=== PATIENT | male | born 2000 | race Caucasian/White ===

== ENCOUNTER 2021-08-22 21:37 | Emergency (ER) | payer OTHER ==
[2021-08-22] MEDS ORDERED: Sodium Chloride 0.9% 1000 ML 1,000 ML IV STA (22:05)
[2021-08-22] MEDS ORDERED: TORAdol 30 mg Injection IV ONE (22:05)
[2021-08-22] MEDS ORDERED: Zofran 4 MG/2 ML VIAL IV ONE (22:05)
[2021-08-22 22:20] LABS: Appearance CLEAR (CLEAR); Bilirubin NEGATIVE (NEGATIVE); Blood NEGATIVE Ery/ul (0-5); Glucose NEGATIVE (NEGATIVE); Ketones NEGATIVE (NEGATIVE); Leukocyte Esterase NEGATIVE (NEGATIVE); Nitrite NEGATIVE (NEGATIVE); Protein,Urine Dip NEGATIVE (Negative); Specific Gravity 1.002 (1.005-1.025); Urobilinogen NEGATIVE mg/dL (0-1)
[2021-08-22] MEDS ORDERED: Zofran 4 MG/2 ML VIAL ONE (22:27)
[2021-08-22] MEDS ORDERED: TORAdol 30 mg Injection ONE (22:27)
[2021-08-22] MEDS ORDERED: Sodium Chloride 0.9% 1000 ML 1,000 ML ONE (22:28)
--- NOTE | 2021-08-22 22:28 | ERPHSYRPT ---
- History of Present Illness Time Seen by Provider: 08/22/21 21:41 Historian: patient Exam Limitations: no limitations Patient Subjective Stated Complaint: pt states "I have been having side pain and urge to pee." Triage Nursing Assessment: pt ambulated into the er; pt is axo x4; c/o rt flank pain; pt denies pain at time of assessment; pt states pain has been intermitten for the past year; pt states urgency with urination; pt denies N/V/D; abd is round, obese, nontender; nontender with palpitation to rt flank; urine clear and yellow; hypertensive Physician History: 21-year-old male presented in the ER with chief complaint of right flank pain off and on for quite some time and lately getting worse with associated increased urinary frequency but no urgency hesitancy or hematuria. Patient reports dull aching sharp pain moderate intensity without any significant aggravating or relieving factors. No fever or chills reported. Timing/Duration: week(s), intermittent, worse Activities at Onset: rest Quality: sharpness, throbbing Abdominal Pain Onset Location: flank Pain Radiation: no radiation Severity of Pain-Max: moderate Severity of Pain-Current: moderate Modifying Factors: Improves With: nothing Associated Symptoms: denies symptoms Previous symptoms: same symptoms as today Allergies/Adverse Reactions: Penicillins Allergy (Verified 08/22/21 21:56) Hx Tetanus, Diphtheria Vaccination/Date Given: Yes (unknown) Hx Influenza Vaccination/Date Given: No Hx Pneumococcal Vaccination/Date Given: No Immunizations Up to Date: Yes Travel Risk - International Travel Have you traveled outside of the country in past 3 weeks: No - Coronavirus Screening Are you exhibiting any of the following symptoms?: No Close contact with a COVID-19 positive Pt in past 14-21 Days: No - Vaccine Status Have you recieved a Covid-19 vaccination: No - Review of Systems Constitutional: No Symptoms Eyes: No Symptoms Ears, Nose, & Throat: No Symptoms Respiratory: No Symptoms Cardiac: No Symptoms Abdominal/Gastrointestinal: Abdominal Pain Genitourinary Symptoms: Urgency Musculoskeletal: No Symptoms Skin: No Symptoms Neurological: No Symptoms Psychological: No Symptoms Endocrine: No Symptoms Hematologic/Lymphatic: No Symptoms Immunological/Allergic: No Symptoms - Past Medical History Pertinent Past Medical History: No - Past Surgical History Past Surgical History: Yes - Social History Smoking Status: Never smoker Exposure to second hand smoke: Yes Drug Use: none Patient Lives Alone: No - Nursing Vital Signs Nursing Vital Signs: Initial Vital Signs O2 Sat by Pulse Oximetry 98 08/22/21 22:28 Pain Scale Pain Intensity 0 - Physical Exam General Appearance: no apparent distress, alert Eye Exam: PERRL/EOMI, eyes nml inspection Ears, Nose, Throat Exam: normal ENT inspection, TMs normal, pharynx normal Neck Exam: normal inspection, non-tender, supple, full range of motion Respiratory Exam: normal breath sounds, lungs clear Cardiovascular Exam: regular rate/rhythm, normal heart sounds Gastrointestinal/Abdomen Exam: soft, normal bowel sounds, tenderness (Left flank), guarding Back Exam: normal inspection, normal range of motion, No CVA tenderness Extremity Exam: normal inspection, normal range of motion Neurologic Exam: alert, oriented x 3, cooperative Skin Exam: normal color SpO2 Interpretation: normal SpO2: 98 O2 Delivery: Room Air Ordered Tests: Active Orders 24 hr Category Date Time Status IV Insertion STAT Care 08/22/21 22:05 Active NPO (ED) STAT Care 08/22/21 22:05 Active ABDOMEN AND PELVIS W/0 CONTRAS [CT] Stat Exams 08/22/21 22:05 Taken CBC W DIFF Stat Lab 08/22/21 22:40 Completed CMP Stat Lab 08/22/21 22:40 Completed LIPASE Stat Lab 08/22/21 22:40 Completed UA W/RFX UR CULTURE Stat Lab 08/22/21 22:14 Completed Medication Summary Discontinued Medications Generic Name Dose Route Start Last Admin Trade Name Amrit PRN Reason Stop Dose Admin Sodium Chloride 1,000 mls @ 999 mls/hr 08/22/21 22:05 08/22/21 22:33 Sodium Chloride 0.9% 1000 Ml IV 08/22/21 23:05 999 mls/hr .Q1H1M STA Administration Sodium Chloride Confirm 08/22/21 22:28 Sodium Chloride 0.9% 1000 Ml Administered 08/22/21 22:29 Dose 1,000 mls @ ud .ROUTE .STK-MED ONE Ketorolac Tromethamine 30 mg 08/22/21 22:05 08/22/21 22:33 Ketorolac Tromethamine 30 Mg/Ml Inj IV 08/22/21 22:06 30 mg STAT ONE Administration Ketorolac Tromethamine Confirm 08/22/21 22:27 Ketorolac Tromethamine 30 Mg/Ml Inj Administered 08/22/21 22:28 Dose 30 mg .ROUTE .STK-MED ONE Ondansetron HCl 4 mg 08/22/21 22:05 08/22/21 22:33 Ondansetron Hcl 4 Mg/2 Ml Vial IV 08/22/21 22:06 4 mg STAT ONE Administration Ondansetron HCl Confirm 08/22/21 22:27 Ondansetron Hcl 4 Mg/2 Ml Vial Administered 08/22/21 22:28 Dose 4 mg .ROUTE .STK-MED ONE Lab/Rad Data: Laboratory Result Diagrams 08/22/21 22:40 08/22/21 22:40 Laboratory Results 08/22/21 08/22/21 08/22/21 Range/Units 22:40 22:40 22:14 WBC 11.6 H (4.0-10.5) K/mm3 RBC 5.45 (4.1-5.6) M/mm3 Hgb 15.8 (12.5-18.0) gm/dl Hct 46.9 (42-50) % MCV 86.1 (78-100) fl MCH 29.0 (26-32) pg MCHC 33.7 (32-36) g/dl RDW 12.5 (11.5-14.0) % Plt Count 317 (150-450) K/mm3 MPV 11.1 H (7.5-11.0) fl Gran % 57.1 (36.0-66.0) % Eos # (Auto) 0.16 (0-0.5) Absolute Lymphs (auto) 3.62 (1.0-4.6) Absolute Monos (auto) 1.13 (0.0-1.3) Lymphocytes % 31.3 (24.0-44.0) % Monocytes % 9.8 (0.0-12.0) % Eosinophils % 1.4 (0.00-5.0) % Basophils % 0.4 (0.0-0.4) % Absolute Granulocytes 6.60 (1.4-6.9) Basophils # 0.05 (0-0.4) Sodium 141 (137-145) mmol/L Potassium 3.7 (3.5-5.1) mmol/L Chloride 103 (98-107) mmol/L Carbon Dioxide 24 (22-30) mmol/L Anion Gap 17.4 H (5-15) MEQ/L BUN 10 (9-20) mg/dL Creatinine 0.85 (0.66-1.25) mg/dL Estimated GFR > 60.0 ML/MIN Glucose 109 H (74-106) mg/dL Calcium 9.7 (8.4-10.2) mg/dL Total Bilirubin 0.50 (0.2-1.3) mg/dL AST 48 (17-59) U/L ALT 78 H (0-50) U/L Alkaline Phosphatase 60 (38-126) U/L Serum Total Protein 8.5 H (6.3-8.2) g/dL Albumin 5.0 (3.5-5.0) g/dL Lipase 78 (23-300) U/L Urine Color COLORLESS (YELLOW) Urine Appearance CLEAR (CLEAR) Urine pH 6.0 (5-6) Ur Specific Coden 1.002 (1.005-1.025) Urine Protein NEGATIVE (Negative) Urine Ketones NEGATIVE (NEGATIVE) Urine Blood NEGATIVE (0-5) José Miguel/ul Urine Nitrite NEGATIVE (NEGATIVE) Urine Bilirubin NEGATIVE (NEGATIVE) Urine Urobilinogen NEGATIVE (0-1) mg/dL Ur Leukocyte Esterase NEGATIVE (NEGATIVE) Urine WBC (Auto) NONE SEEN (0-5) /HPF Urine RBC (Auto) NONE SEEN (0-2) /HPF U Epithel Cells (Auto) NONE (FEW) /HPF Urine Bacteria (Auto) NONE SEEN (NEGATIVE) /HPF Urine Culture Reflexed NO (NO) Urine Glucose NEGATIVE (NEGATIVE) mg/dL - Progress Progress: improved Progress Note: 08/22/21 23:22 Is given IV fluids and Toradol for symptomatic relief, on reevaluation is totally pain-free. No UTI. Count, grossly unremarkable chemistries except for mildly elevated gap. CT negative for any acute intra-abdominal findings. Do not know the exact cause of his pain but have ruled out all the major emergencies. Discussed signs symptoms of worsening needing return to ER which he seems un derstanding. Stable for discharge. Counseled pt/family regarding: diagnosis, need for follow-up, rad results - Departure Departure Disposition: Home Clinical Impression: Right flank pain, Right flank pain Condition: Stable Critical Care Time: No Referrals: AYLEEN GONZALEZ MD [Primary Care Provider] - Follow Up with PCP/3 days Instructions: Flank Pain Additional Instructions: Take Tylenol/ibuprofen as needed. Follow-up with primary care for reevaluation. Return to ER for worsening pain, difficulty urination, fever chills etc. Prescriptions: Ibuprofen 600 mg PO Q6HPRN PRN 10 Days #20 tablet PRN Reason: Pain
[2021-08-22 22:43] LABS: BASOPHIL % 0.4 % (0.0-0.4); Basophil (Absolute #) 0.05 (0-0.4); Eosinophil % 1.4 % (0.00-5.0); Eosinophil (Absolute #) 0.16 (0-0.5); Hematocrit 46.9 % (42-50); Hemoglobin 15.8 gm/dl (12.5-18.0); Lymphocyte (Absolute #) 3.62 (1.0-4.6); Lymphocytes % 31.3 % (24.0-44.0); Mean Cell Volume 86.1 fl (78-100); Mean Corpuscular Hgb Concent. 33.7 g/dl (32-36); Mean Platelet Volume 11.1 fl (7.5-11.0); Monocyte (Absolute #) 1.13 (0.0-1.3); Monocytes % 9.8 % (0.0-12.0); Neutrophil % 57.1 % (36.0-66.0); Platelet Count 317 K/mm3 (150-450); Red Blood Count 5.45 M/mm3 (4.1-5.6); Red Cell Distribution Width 12.5 % (11.5-14.0); White Blood Count 11.6 K/mm3 (4.0-10.5)
[2021-08-22 22:52] LABS: Bacteria NONE SEEN /HPF (NEGATIVE); RBC NONE SEEN /HPF (0-2); WBC NONE SEEN /HPF (0-5)
[2021-08-22 22:59] LABS: ALKALINE PHOSPHATASE 60 U/L (38-126); ANION GAP 17.4 MEQ/L (5-15); BLOOD UREA NITROGEN 10 mg/dL (9-20); CHLORIDE 103 mmol/L (98-107); Calcium 9.7 mg/dL (8.4-10.2); Carbon Dioxide 24 mmol/L (22-30); Creatinine 1 0.85 mg/dL (0.66-1.25); EST GLOMERULAR FILTRATION RATE > 60.0 ML/MIN; Glucose 109 mg/dL (74-106); LIPASE 78 U/L (23-300); Potassium 3.7 mmol/L (3.5-5.1); SGOT/AST 48 U/L (17-59); SGPT/ALT 78 U/L (0-50); SODIUM 141 mmol/L (137-145); Total Protein 8.5 g/dL (6.3-8.2)
--- NOTE | 2021-08-23 08:36 | XRAY ---
Indication: Right flank pain. Multiple contiguous axial images obtained through the abdomen and pelvis without contrast. Comparison: None Lung bases are clear. Heart not enlarged. Stomach is distended with food/fluid. Noncontrasted stomach and bowel loops nonobstructed with normal appendix. No free fluid/air. Mild diffuse fatty liver and 13.5 cm splenomegaly. Remaining liver, gallbladder, pancreas, spleen, adrenal glands, kidneys, ureters, bladder, and aorta are unremarkable for noncontrast exam. Osseous structures intact. No ventral or inguinal hernias. Impression: 1. Fatty liver and splenomegaly. 2. Remaining CT abdomen/pelvis without contrast exam is negative. Comment: Preliminary interpretation made by C. No critical discrepancy.
== END 2021-08-22 23:38 | disposition home or self-care (01) ==
LOC: ED 21:37
DX: R10.84 Generalized abdominal pain (principal); R35.0 Frequency of micturition
CPT/HCPCS: 36000; 36415; 74176; 80053; 81001; 83690; 85025; 96374; 96375; 99284; J1885; J2405